=== PATIENT | male | born 1955 | race Caucasian/White ===

== ENCOUNTER → 2016-04-02 | Outpatient (CLI) | payer MEDICARE, OTHER ==
[~2016-04-02] MED LIST: ACTOS 45MG45 MG/TAB PO; ACTOS45 MG PO; ASPIRIN E.C. 8181 MG PO; BENAZEPRIL; BENAZEPRIL20 MG PO; CADUET 10 MG-101 TAB PO; CADUET 5 MG-101 TAB PO; CENTRUM SILVER1 CTB PO; CIPRO 500MG TA500 MG PO; FERROUS SU325 MG/TAB PO; FLAGYL500 MG PO; FOLIC ACID; GLUCOPHAGE500 MG/TAB PO; JANUVIA 100MG100 MG PO; JANUVIA100 MG PO; JARDIANCE25; LANTUS100 U/ML; LANTUS100 U/ML SQ; LIPITOR 10MG10 MG PO; LOTENSIN20 MG PO; METFORMIN500 MG PO; NORCO 325 MG-7.1 TAB PO; NORVASC 5MG5 MG/TAB PO; NORVASC5 MG PO; PRILOSEC 20MG20 MG PO; PRINIVIL20 MG PO; ROXICODONE 55 MG/TAB PO; TOPROL XL 25MG25 MG PO; VIAGRA100 MG PO; VITAMIN C250250 MG PO; WELLBUTRIN XL300 M1 PO
== END ==
LOC: WCC 11:00
DX: I87.8 Other specified disorders of veins (principal); L97.919 Non-pressure chronic ulcer of unspecified part of right lower leg with unspecified severity; E11.9 Type 2 diabetes mellitus without complications
CPT/HCPCS: 17717; 27510; A6197; A6212; G0463

== ENCOUNTER → 2016-04-03 | Outpatient (CLI) | payer MEDICARE, OTHER | LOC: COL.VAS 09:00 | DX: E11.622 Type 2 diabetes mellitus with other skin ulcer (principal); L97.211 Non-pressure chronic ulcer of right calf limited to breakdown of skin; R60.0 Localized edema ==

== ENCOUNTER → 2016-04-13 | Outpatient (CLI) | payer MEDICARE, OTHER | LOC: WCC 08:29 | DX: I87.8 Other specified disorders of veins (principal) | CPT/HCPCS: 17717; 27510; A6197; A6212; G0463 ==

== ENCOUNTER 2016-05-07 14:00 | Outpatient (RCR) | payer MEDICARE, OTHER ==
[~2016-05-07 14:00] MED LIST changes: -CIPRO 500MG TA500 MG PO; -FLAGYL500 MG PO; -JARDIANCE25; -PRINIVIL20 MG PO; -WELLBUTRIN XL300 M1 PO
== END 2016-05-22 10:25 | disposition home or self-care (01) ==
LOC: WSPT 14:00
DX: M25.812 Other specified joint disorders, left shoulder (principal)
CPT/HCPCS: G8984-GP; G8985-GP; G8986-GP

== ENCOUNTER 2016-06-15 19:10 | Inpatient (IN) | payer MEDICARE, OTHER ==
[~2016-06-15] VITALS: Ht 160 cm; Wt 84.2 kg
[2016-06-15 19:55] LABS: BASO % 0.3 % (0.0-2.0); EOS % 0.2 % (0-4.0); GRAN # 10.8 (1.4-6.5); GRAN % 84.5 % (42.2-75.2); HEMATOCRIT 48.2 % (42.0-52.0); HEMOGLOBIN 16.8 g/dl (13.5-18.0); LYMPH # 0.8 (1.2-3.4); LYMPH % 6.5 % (20.0-51.0); MEAN CELL VOLUME 86 fl (80.0-100.0); MEAN CORPUSCULAR HEMOGLOBIN 30 pg (27.0-31.0); MEAN CORPUSCULAR HGB CONC 35 g/dl (33.0-37.0); MEAN PLATELET VOLUME 9.7 fl (7.4-10.4); MONO % 7.8 % (1.7-9.3); PLATELET COUNT 187 K/mm3 (130-400); RED BLOOD COUNT 5.64 M/mm3 (4.20-5.60); REDCELL DISTRIBUTION WIDTH-CV 13.7 % (11.5-14.5); WHITE BLOOD COUNT 12.7 K/mm3 (4.8-10.8)
[2016-06-15 20:02] LABS: PROTHROMBIN TIME 10.5 SECONDS (9.7-12.8)
[2016-06-15 20:05] LABS: PARTIAL THROMBOPLASTIN TIME 28.2 SECONDS (26.0-37.0)
[2016-06-15 20:10] LABS: ADJUSTED CALCIUM 9.3 mg/dL (8.4-10.2); ALANINE AMINOTRANSFERASE 28 U/L (21-72); ALBUMIN 4.2 gm/dL (3.5-5.0); ALKALINE PHOSPHATASE 75 U/L (50-136); AMYLASE 58 U/L (30-110); ANION GAP 15 mmol/L (7-16); BILIRUBIN,TOTAL 1.1 mg/dL (0.0-1.0); BLOOD UREA NITROGEN 21 mg/dL (9-20); CALCIUM 9.5 mg/dL (8.4-10.2); CARBON DIOXIDE 20 mmol/L (22-30); CHLORIDE 102 mmol/L (98-107); CREATININE, serum 1.15 mg/dL (0.66-1.25); GLUCOSE 164 mg/dL (74-106); LIPASE 74 U/L (23-300); POTASSIUM 4.3 mmol/L (3.4-5.0); SODIUM 137 mmol/L (137-145); TOTAL PROTEIN 7.1 gm/dL (6.4-8.2)
[2016-06-15 20:36] LABS: TROPONIN-I < 0.012 ng/mL (0.000-0.034)
[2016-06-15 21:37] LABS: PH 5 (5-8); SQUAMOUS EPITHELIAL None Seen /hpf; URINE APPEARANCE Clear; URINE BACTERIA None Seen /hpf; URINE BILIRUBIN Negative (NEGATIVE); URINE BLOOD Negative (NEGATIVE); URINE COLOR Yellow; URINE GLUCOSE 3+ (NEGATIVE); URINE KETONE Negative (NEGATIVE); URINE RBC 0-2 /hpf; URINE UROBILINOGEN Negative (NEGATIVE); URINE WBC 0-2 /hpf
[2016-06-16] VITALS (545 sets, daily range): BP systolic 121–131; BP diastolic 55–65; PULSE 67–98; TEMP 97.8–98.3; O2SAT 89–98
[2016-06-16] MEDS ORDERED: WELLBUTRIN XL300 M1 PO (02:06)
[2016-06-16] MEDS ORDERED: JARDIANCE25 (02:07)
[2016-06-16] MEDS ORDERED: PRINIVIL20 MG PO (02:09)
[2016-06-16 06:47] LABS: BASO % 0.2 % (0.0-2.0); EOS # 0.1 (0.0-0.7); EOS % 0.6 % (0-4.0); GRAN # 6.8 (1.4-6.5); GRAN % 75.3 % (42.2-75.2); HEMATOCRIT 42.1 % (42.0-52.0); LYMPH # 1.2 (1.2-3.4); LYMPH % 13.7 % (20.0-51.0); MEAN CELL VOLUME 87 fl (80.0-100.0); MEAN CORPUSCULAR HEMOGLOBIN 30 pg (27.0-31.0); MEAN CORPUSCULAR HGB CONC 34 g/dl (33.0-37.0); MEAN PLATELET VOLUME 9.8 fl (7.4-10.4); MONO # 0.8 (0.1-0.6); MONO % 9.3 % (1.7-9.3); PLATELET COUNT 149 K/mm3 (130-400); RED BLOOD COUNT 4.83 M/mm3 (4.20-5.60); REDCELL DISTRIBUTION WIDTH-CV 13.8 % (11.5-14.5)
[2016-06-16 06:58] LABS: HEMOGLOBIN 14.3 g/dl (13.5-18.0)
[2016-06-16 07:11] LABS: POTASSIUM 3.8 mmol/L (3.4-5.0)
[2016-06-17 00:36] VITALS: BP 133/67; PULSE 77; TEMP 98.3
[2016-06-17 04:50] VITALS: BP 133/62; PULSE 91; TEMP 98.6
[2016-06-17 08:38] VITALS: BP 139/66; PULSE 74; TEMP 98.2
[2016-06-17 12:00] VITALS: BP 152/63; PULSE 86; TEMP 97.8
[2016-06-17 15:24] VITALS: BP 138/56; PULSE 79; TEMP 98.7
[2016-06-17] MEDS ORDERED: CIPRO 500MG TA500 MG PO (17:11)
[2016-06-17] MEDS ORDERED: FLAGYL500 MG PO (17:12)
== END 2016-06-17 19:14 | disposition home or self-care (01) | DRG 392 ==
LOC: COL.ER 19:10 → IMCU 21:54 → MEDICAL 21:54 → IMCU 23:31 → MEDICAL 06-16 14:47
PROVIDERS: Emergency Medicine; Nurse Practitioner Family
DX: K57.32 Diverticulitis of large intestine without perforation or abscess without bleeding (principal); R65.10 Systemic inflammatory response syndrome (SIRS) of non-infectious origin without acute organ dysfunction; I10 Essential (primary) hypertension; E11.9 Type 2 diabetes mellitus without complications; F43.10 Post-traumatic stress disorder, unspecified; Z87.891 Personal history of nicotine dependence
CPT/HCPCS: 99223-AI; 99239; J1170; J1815; J1956; J2543; J2765; J3010; J7030; J7050; Q9967

== ENCOUNTER → 2016-11-26 | Outpatient (CLI) | payer MEDICARE, OTHER ==
[~2016-11-26] MED LIST changes: +CIPRO 500MG TA500 MG PO; +FLAGYL500 MG PO; +JARDIANCE25; +PRINIVIL20 MG PO; +WELLBUTRIN XL300 M1 PO
[2016-11-26 10:46] LABS: HIV 1/2 Antibodies Non-Reactive; HIV-1p24 Antigen Non-Reactive
== END ==
LOC: COL.LAB 09:11
PROVIDERS: Orthopaedic Surgery
DX: Z01.812 Encounter for preprocedural laboratory examination (principal); M17.12 Unilateral primary osteoarthritis, left knee

== ENCOUNTER 2016-11-30 12:06 | Outpatient (RCR) | payer MEDICARE, OTHER ==
[2016-12-02] MEDS ORDERED: TOPROL XL 25MG25 MG PO (10:12)
[2016-12-04] MEDS ORDERED: XARELTO10 MG PO (14:06)
[2016-12-04] MEDS ORDERED: NORCO 325 MG-7.1 TAB PO (14:06)
[2016-12-04] MEDS ORDERED: ROXICODONE 55 MG/TAB PO (14:07)
== END 2016-12-03 12:49 ==
LOC: WSPT 12:06
DX: Z01.818 Encounter for other preprocedural examination (principal)
CPT/HCPCS: G8978-GP; G8979-GP; G8980-GP

== ENCOUNTER 2017-03-02 15:45 | Outpatient (RCR) | payer MEDICARE, OTHER ==
[~2017-03-02 15:45] MED LIST changes: +XARELTO10 MG PO
== END 2017-03-05 08:36 | disposition home or self-care (01) ==
LOC: WSPT 15:45
DX: Z47.1 Aftercare following joint replacement surgery (principal); Z96.652 Presence of left artificial knee joint
CPT/HCPCS: G8978-GP; G8979-GP; G8980-GP

== ENCOUNTER 2018-03-24 09:43 | Emergency (ER) | payer MEDICARE, OTHER ==
[~2018-03-24] VITALS: Ht 160 cm; Wt 81.8 kg
[2018-03-24 09:45] VITALS: TEMP 98.4
[2018-03-24 10:06] LABS: BASO % 0.3 % (0.0-2.0); EOS # 0.1 (0.0-0.7); EOS % 0.6 % (0-4.0); GRAN # 12.6 (1.4-6.5); GRAN % 82.2 % (42.2-75.2); HEMATOCRIT 51.9 % (42.0-52.0); HEMOGLOBIN 17.9 g/dl (13.5-18.0); LYMPH # 1.4 (1.2-3.4); LYMPH % 9.1 % (20.0-51.0); MEAN CELL VOLUME 86 fl (80.0-100.0); MEAN CORPUSCULAR HEMOGLOBIN 30 pg (27.0-31.0); MEAN CORPUSCULAR HGB CONC 35 g/dl (33.0-37.0); MEAN PLATELET VOLUME 9.5 fl (7.4-10.4); MONO # 1.1 (0.1-0.6); PLATELET COUNT 211 K/mm3 (130-400); RED BLOOD COUNT 6.04 M/mm3 (4.20-5.60); REDCELL DISTRIBUTION WIDTH-CV 13.4 % (11.5-14.5)
[2018-03-24 10:28] LABS: ALANINE AMINOTRANSFERASE 24 U/L (21-72); ALBUMIN 4.3 gm/dL (3.5-5.0); ALKALINE PHOSPHATASE 85 U/L (50-136); ANION GAP 11 mmol/L (7-16); AST,SGOT 30 U/L (15-37); BILIRUBIN,TOTAL 0.6 mg/dL (0.0-1.0); BLOOD UREA NITROGEN 19 mg/dL (9-20); CALCIUM 9.7 mg/dL (8.4-10.2); CARBON DIOXIDE 22 mmol/L (22-30); CHLORIDE 105 mmol/L (98-107); CREATININE, serum 1.05 mg/dL (0.66-1.25); GLUCOSE 183 mg/dL (74-106); LIPASE 79 U/L (23-300); POTASSIUM 4.6 mmol/L (3.4-5.0); SODIUM 137 mmol/L (137-145); TOTAL PROTEIN 7.5 gm/dL (6.4-8.2)
[2018-03-24 10:30] LABS: C-REACTIVE PROTEIN < 0.5 mg/dL (0.0-0.9)
[2018-03-24 10:37] LABS: TROPONIN-I < 0.012 ng/mL (0.000-0.035)
[2018-03-24 12:52] LABS: COLLECTION METHOD CLEAN CATCH
[2018-03-24 13:03] LABS: PH 5 (5-8); SQUAMOUS EPITHELIAL None Seen /hpf; URINE APPEARANCE Clear; URINE BACTERIA None Seen /hpf; URINE BILIRUBIN Negative (NEGATIVE); URINE BLOOD Negative (NEGATIVE); URINE COLOR Straw; URINE GLUCOSE 3+ (NEGATIVE); URINE KETONE Negative (NEGATIVE); URINE LEUKOCYTE ESTERASE Negative (NEGATIVE); URINE NITRATE Negative (NEGATIVE); URINE PROTEIN(semi-quant) Negative (NEGATIVE); URINE RBC 0-2 /hpf; URINE UROBILINOGEN Negative (NEGATIVE)
[2018-03-24] MEDS ORDERED: ZOFRAN ODT4 MG PO (13:48)
[2018-03-24] MEDS ORDERED: PROTONIX 40MG T40 MG PO (13:48)
[2018-03-24] MEDS ORDERED: CEFTIN500 MG PO (13:48)
[2018-03-24] MEDS ORDERED: NORCO 325 MG-51 TAB PO (13:55)
[2018-03-24 14:21] VITALS: BP 119/65; PULSE 63
== END 2018-03-24 14:23 | disposition home or self-care (01) ==
LOC: COL.ER 09:43
PROVIDERS: Emergency Medicine
DX: R10.9 Unspecified abdominal pain (principal); E11.9 Type 2 diabetes mellitus without complications; I10 Essential (primary) hypertension; E78.5 Hyperlipidemia, unspecified; F43.10 Post-traumatic stress disorder, unspecified; Z79.4 Long term (current) use of insulin; Z79.82 Long term (current) use of aspirin
CPT/HCPCS: C9113; J1170; J2405; J7030; Q9967

== ENCOUNTER 2018-04-19 12:02 | Emergency (ER) | payer MEDICARE, OTHER ==
[~2018-04-19] VITALS: Ht 160 cm; Wt 81.4 kg
[~2018-04-19 12:02] MED LIST changes: +CEFTIN500 MG PO; +NORCO 325 MG-51 TAB PO; +PROTONIX 40MG T40 MG PO; +ZOFRAN ODT4 MG PO
[2018-04-19 12:27] VITALS: TEMP 97.9
[2018-04-19 12:54] LABS: COLLECTION METHOD CLEAN CATCH
[2018-04-19 13:03] LABS: PH 5 (5-8); SQUAMOUS EPITHELIAL 0-2 /hpf; URINE APPEARANCE Clear; URINE BACTERIA None Seen /hpf; URINE BILIRUBIN Negative (NEGATIVE); URINE BLOOD Negative (NEGATIVE); URINE COLOR Yellow; URINE GLUCOSE 3+ (NEGATIVE); URINE KETONE Negative (NEGATIVE); URINE LEUKOCYTE ESTERASE Negative (NEGATIVE); URINE NITRATE Negative (NEGATIVE); URINE PROTEIN(semi-quant) Negative (NEGATIVE); URINE RBC 0-2 /hpf; URINE UROBILINOGEN Negative (NEGATIVE)
[2018-04-19 13:08] LABS: BASO # 0.1 (0.0-0.2); BASO % 0.4 % (0.0-2.0); EOS # 0.1 (0.0-0.7); EOS % 0.7 % (0-4.0); GRAN # 12.4 (1.4-6.5); HEMOGLOBIN 17.9 g/dl (13.5-18.0); LYMPH # 0.9 (1.2-3.4); LYMPH % 6.3 % (20.0-51.0); MEAN CELL VOLUME 87 fl (80.0-100.0); MEAN CORPUSCULAR HEMOGLOBIN 30 pg (27.0-31.0); MEAN CORPUSCULAR HGB CONC 34 g/dl (33.0-37.0); MEAN PLATELET VOLUME 9.8 fl (7.4-10.4); MONO # 1.1 (0.1-0.6); MONO % 7.6 % (1.7-9.3); PLATELET COUNT 197 K/mm3 (130-400); RED BLOOD COUNT 6.06 M/mm3 (4.20-5.60); REDCELL DISTRIBUTION WIDTH-CV 13.5 % (11.5-14.5)
[2018-04-19 13:09] LABS: HEMATOCRIT 52.8 % (42.0-52.0)
[2018-04-19 14:05] LABS: ALANINE AMINOTRANSFERASE 26 U/L (21-72); ALKALINE PHOSPHATASE 64 U/L (50-136); ANION GAP 10 mmol/L (7-16); AST,SGOT 23 U/L (15-37); BILIRUBIN,TOTAL 0.7 mg/dL (0.0-1.0); BLOOD UREA NITROGEN 18 mg/dL (9-20); C-REACTIVE PROTEIN < 0.5 mg/dL (0.0-0.9); CALCIUM 9.1 mg/dL (8.4-10.2); CARBON DIOXIDE 23 mmol/L (22-30); CHLORIDE 108 mmol/L (98-107); CREATININE, serum 0.98 mg/dL (0.66-1.25); GLUCOSE 144 mg/dL (74-106); LIPASE 62 U/L (23-300); POTASSIUM 4.1 mmol/L (3.4-5.0); SODIUM 141 mmol/L (137-145); TOTAL PROTEIN 6.8 gm/dL (6.4-8.2)
[2018-04-19] MEDS ORDERED: NORCO 325 MG-51 TAB PO (14:49)
[2018-04-19 15:10] VITALS: BP 110/58; PULSE 88
== END 2018-04-19 15:11 | disposition home or self-care (01) ==
LOC: COL.ER 12:02
PROVIDERS: Family Medicine
DX: M54.9 Dorsalgia, unspecified (principal); Z79.82 Long term (current) use of aspirin; Z79.4 Long term (current) use of insulin
CPT/HCPCS: J1170; J2405; J7030

== ENCOUNTER → 2018-04-26 | Outpatient (CLI) | payer MEDICARE, OTHER | LOC: COL.RAD 11:49 | DX: R10.11 Right upper quadrant pain (principal) | CPT/HCPCS: A9537 ==

== ENCOUNTER 2018-05-20 14:00 | Day surgery (SDC) | payer MEDICARE, OTHER ==
[~2018-05-20] VITALS: Ht 160 cm; Wt 79.5 kg
[2018-05-20] MEDS ORDERED: TYLENOL W/COD1 UDTAB PO (14:23)
[2018-05-20] MEDS ORDERED: JANUVIA 100MG100 MG PO (14:23)
[2018-05-20] MEDS ORDERED: VITAMIN D 1001000 IU PO (14:24)
[2018-05-20] MEDS ORDERED: PRESERVISION1 SGL PO (14:24)
[2018-05-20 14:26] VITALS: BP 119/66; PULSE 69; TEMP 98.3
[2018-05-20 16:15] VITALS: BP 106/61; PULSE 68; TEMP 97.4
--- NOTE | 2018-05-20 16:15 | NUR ---
The patient arrived back to [facility] at this time. The patient appears alert and oriented and ambulated from the cart to the recliner in his room with the stand by assistance of two nurses. Post procedure vital signs were started at this time. The patient requests to try some vanilla pudding and apple juice at this time. Call light is within reach. Will continue to monitor the patient.
[2018-05-20 16:30] VITALS: BP 102/55; PULSE 74
--- NOTE | 2018-05-20 16:30 | NUR ---
The patient appeared to tolerate the pudding and juice well and requests more of each at this time. The patient's vital signs appear stable. Will continue to monitor the patient.
[2018-05-20 16:45] VITALS: BP 110/54; PULSE 69
--- NOTE | 2018-05-20 16:45 | NUR ---
The patient and his have both spoke with Dr. Cisneros regarding the findings of the proceudres and questions have been answered. The nurse instructed the patient's to go pull the car up to the patient entrance while the patient get dressed. Discharge instructions were reviwed with the patient and he verbalized understanding. The patient's IV to his right wrist was removed and a pressure dressing was applied to the site.
--- NOTE | 2018-05-20 17:00 | NUR ---
The patient ambulated out to a private vehicle escorted by TRU Gonzalez using a steady gait at this time. The patient's belongings and discharge paperwork were sent with him. The patient's is present to drive him home.
== END 2018-05-20 17:00 | disposition home or self-care (01) ==
LOC: SDCO 14:00
DX: K57.30 Diverticulosis of large intestine without perforation or abscess without bleeding (principal); K29.30 Chronic superficial gastritis without bleeding; K59.00 Constipation, unspecified; E11.9 Type 2 diabetes mellitus without complications; K44.9 Diaphragmatic hernia without obstruction or gangrene; R19.7 Diarrhea, unspecified; I10 Essential (primary) hypertension; F43.10 Post-traumatic stress disorder, unspecified; E78.00 Pure hypercholesterolemia, unspecified
CPT/HCPCS: J2250; J3010; J7030

== ENCOUNTER 2018-06-25 15:06 | Emergency (ER) | payer MEDICARE, OTHER ==
[~2018-06-25] VITALS: Ht 160 cm; Wt 82.6 kg
[~2018-06-25 15:06] MED LIST changes: -JARDIANCE25; +JARDIANCE25 PO; +PRESERVISION1 SGL PO; +TYLENOL W/COD1 UDTAB PO; +VIAGRA100 M1 PO; -VIAGRA100 MG PO; +VITAMIN D 1001000 IU PO
[2018-06-25 15:09] VITALS: BP 142/67; TEMP 97.1
[2018-06-25] MEDS ORDERED: FORTAMET500 M1 PO (15:29)
[2018-06-25 15:52] VITALS: PULSE 77
== END 2018-06-25 15:52 | disposition home or self-care (01) ==
LOC: COL.ER 15:06
DX: S02.5XXA Fracture of tooth (traumatic), initial encounter for closed fracture (principal); E11.9 Type 2 diabetes mellitus without complications; I25.10 Atherosclerotic heart disease of native coronary artery without angina pectoris; I10 Essential (primary) hypertension; Z79.4 Long term (current) use of insulin; X58.XXXA Exposure to other specified factors, initial encounter

== ENCOUNTER 2018-11-25 17:29 | Emergency (ER) | payer MEDICARE, OTHER ==
[~2018-11-25] VITALS: Ht 160 cm; Wt 80.9 kg
[~2018-11-25 17:29] MED LIST changes: +FORTAMET500 M1 PO
[2018-11-25 17:48] VITALS: BP 128/61; TEMP 97.4
[2018-11-25 18:53] VITALS: PULSE 73
== END 2018-11-25 18:53 | disposition home or self-care (01) ==
LOC: COL.ER 17:29
DX: S61.212A Laceration without foreign body of right middle finger without damage to nail, initial encounter (principal); I10 Essential (primary) hypertension; E11.9 Type 2 diabetes mellitus without complications; Z79.82 Long term (current) use of aspirin; Z79.4 Long term (current) use of insulin; F17.210 Nicotine dependence, cigarettes, uncomplicated; W29.8XXA Contact with other powered hand tools and household machinery, initial encounter; Y92.009 Unspecified place in unspecified non-institutional (private) residence as the place of occurrence of the external cause

== ENCOUNTER 2019-04-06 09:53 | Emergency (ER) | payer OTHER, MEDICARE ==
[~2019-04-06] VITALS: Ht 160 cm; Wt 80.9 kg
[2019-04-06] MEDS ORDERED: FLEXERIL 1010 MG/TAB PO (10:52)
[2019-04-06] MEDS ORDERED: LIDODERM 5% PATC1 EA TP (10:53)
[2019-04-06 11:15] VITALS: BP 138/80; PULSE 60; TEMP 98.5
== END 2019-04-06 11:11 | disposition home or self-care (01) ==
LOC: COL.ER 09:53
DX: S39.012A Strain of muscle, fascia and tendon of lower back, initial encounter (principal); S80.02XA Contusion of left knee, initial encounter; I10 Essential (primary) hypertension; E11.9 Type 2 diabetes mellitus without complications; Z79.4 Long term (current) use of insulin; Z79.82 Long term (current) use of aspirin; V40.5XXA Car driver injured in collision with pedestrian or animal in traffic accident, initial encounter
CPT/HCPCS: J1885

== ENCOUNTER 2020-03-10 15:11 | Emergency (ER) | payer MEDICARE, OTHER ==
[~2020-03-10] VITALS: Ht 160 cm; Wt 80.9 kg
[~2020-03-10 15:11] MED LIST changes: +FLEXERIL 1010 MG/TAB PO; +LIDODERM 5% PATC1 EA TP
[2020-03-10 15:30] VITALS: TEMP 97.5
[2020-03-10 15:47] LABS: HEMATOCRIT 45.3 % (42.0-52.0); HEMOGLOBIN 15.2 g/dl (13.5-18.0); MEAN CELL VOLUME 88 fl (80.0-100.0); MEAN CORPUSCULAR HEMOGLOBIN 29 pg (27.0-31.0); MEAN CORPUSCULAR HGB CONC 34 g/dl (33.0-37.0); MEAN PLATELET VOLUME 9.9 fl (7.4-10.4); PLATELET COUNT 178 K/mm3 (130-400); RED BLOOD COUNT 5.17 M/mm3 (4.20-5.60); REDCELL DISTRIBUTION WIDTH-CV 13.4 % (11.5-14.5)
[2020-03-10 15:49] LABS: COLLECTION METHOD CLEAN CATCH
[2020-03-10 15:55] LABS: MUCOUS Present /lpf; PH 5 (5-8); SQUAMOUS EPITHELIAL 0-2 /hpf; URINE APPEARANCE Clear; URINE BACTERIA None Seen /hpf; URINE BILIRUBIN Negative (NEGATIVE); URINE BLOOD Negative (NEGATIVE); URINE COLOR Yellow; URINE GLUCOSE 3+ (NEGATIVE); URINE KETONE Trace (NEGATIVE); URINE LEUKOCYTE ESTERASE Negative (NEGATIVE); URINE NITRATE Negative (NEGATIVE); URINE PROTEIN(semi-quant) Negative (NEGATIVE); URINE RBC 0-2 /hpf; URINE UROBILINOGEN Negative (NEGATIVE)
[2020-03-10 16:01] LABS: ALANINE AMINOTRANSFERASE 26 U/L (4-49); ALBUMIN 3.9 gm/dL (3.5-5.0); ALKALINE PHOSPHATASE 71 U/L (50-136); ANION GAP 11 mmol/L (7-16); AST,SGOT 38 U/L (15-37); BILIRUBIN,TOTAL 1.1 mg/dL (0.0-1.0); BLOOD UREA NITROGEN 23 mg/dL (9-20); CALCIUM 8.7 mg/dL (8.4-10.2); CARBON DIOXIDE 23 mmol/L (22-30); CHLORIDE 100 mmol/L (98-107); GLUCOSE 167 mg/dL (74-106); POTASSIUM 4.1 mmol/L (3.4-5.0); SODIUM 134 mmol/L (137-145); TOTAL PROTEIN 7.2 gm/dL (6.4-8.2)
[2020-03-10 16:12] LABS: C-REACTIVE PROTEIN 21.3 mg/dL (0.0-0.9); TROPONIN-I < 0.012 ng/mL (0.000-0.035)
[2020-03-10 16:20] LABS: BAND 1 % (0-10); LYMPHOCYTE 14 % (20.0-51.0); NEUTROPHILS 75 % (42.0-75.2)
[2020-03-10 16:21] LABS: PLATELET ESTIMATE NORMAL (NORMAL)
[2020-03-10] MEDS ORDERED: ZITHROMAX 250M250 MG PO (17:40)
[2020-03-10] MEDS ORDERED: PREDNISONE20 MG PO (17:42)
[2020-03-10 17:45] VITALS: BP 113/63; PULSE 73
== END 2020-03-10 17:54 | disposition home or self-care (01) ==
LOC: COL.ER 15:11
PROVIDERS: Nurse Practitioner Primary Care
DX: Z20.822 Contact with and (suspected) exposure to COVID-19 (principal); I10 Essential (primary) hypertension; E11.9 Type 2 diabetes mellitus without complications; E78.5 Hyperlipidemia, unspecified; Z98.61 Coronary angioplasty status; Z79.4 Long term (current) use of insulin; Z79.82 Long term (current) use of aspirin
CPT/HCPCS: J7512; Q9967

== ENCOUNTER 2020-03-13 20:36 | Inpatient (IN) | payer MEDICARE, OTHER ==
[~2020-03-13] VITALS: Ht 160 cm; Wt 77.7 kg
[~2020-03-13 20:36] MED LIST changes: +PREDNISONE20 MG PO; +ZITHROMAX 250M250 MG PO
[2020-03-13 22:52] LABS: HEMATOCRIT 45.9 % (42.0-52.0); HEMOGLOBIN 15.4 g/dl (13.5-18.0); MEAN CELL VOLUME 88 fl (80.0-100.0); MEAN CORPUSCULAR HEMOGLOBIN 30 pg (27.0-31.0); MEAN CORPUSCULAR HGB CONC 34 g/dl (33.0-37.0); PLATELET COUNT 278 K/mm3 (130-400); RED BLOOD COUNT 5.22 M/mm3 (4.20-5.60); REDCELL DISTRIBUTION WIDTH-CV 13.2 % (11.5-14.5)
[2020-03-13 23:03] LABS: ALANINE AMINOTRANSFERASE 24 U/L (4-49); ALBUMIN 3.8 gm/dL (3.5-5.0); ALKALINE PHOSPHATASE 58 U/L (50-136); ANION GAP 11 mmol/L (7-16); AST,SGOT 37 U/L (15-37); BLOOD UREA NITROGEN 23 mg/dL (9-20); CALCIUM 8.6 mg/dL (8.4-10.2); CARBON DIOXIDE 22 mmol/L (22-30); CHLORIDE 99 mmol/L (98-107); CREATININE, serum 1.06 (0.66-1.25); GLUCOSE 141 mg/dL (74-106); POTASSIUM 4.7 mmol/L (3.4-5.0); SODIUM 132 mmol/L (137-145); TOTAL PROTEIN 7.3 gm/dL (6.4-8.2)
[2020-03-13 23:04] LABS: LYMPHOCYTE 10 % (20.0-51.0); MYELOCYTE 1 % (0-0); NEUTROPHILS 85 % (42.0-75.2)
[2020-03-13 23:05] LABS: PLATELET ESTIMATE NORMAL (NORMAL); SCHISTOCYTES 1+
[2020-03-13 23:11] LABS: TROPONIN-I < 0.012 ng/mL (0.000-0.035)
[2020-03-13] MEDS ORDERED: GLUCOPHAGE500 MG/TAB PO (23:59)
[2020-03-14] VITALS (7 sets, daily range): BP systolic 106–133; BP diastolic 54–64; PULSE 55–72; TEMP 97.7–99.8
[2020-03-14] MEDS ORDERED: VITAMIN D31000 I1 PO (00:04)
[2020-03-14 01:19] LABS: INR 1.1 (0.8-3.0)
[2020-03-14 01:22] LABS: PARTIAL THROMBOPLASTIN TIME 29.4 SECONDS (26.0-37.0)
--- NOTE | 2020-03-14 02:00 | NUR ---
Received patient from ED. He is COVID PUI. He is alert and oriented. ER nurse just hooked patient to NS at 75ml/hr and Doxycycline 100mg IV. He is on O2 at 2lpm via NC. He states he is short of breath depending on his position and whenever he would ambulate. He denies pain. He said he is hungry and wanting some food and drinks. Instructed patient that I will swab him for covid test and we need a urine sample. Informed him regarding frequency of his blood glucose monitoring. He is independent. His lungs are diminished. Call light within reach.
[2020-03-14 03:19] LABS: ARTERIAL BLD GAS O2 SATURATION 97.2 % (92-100); ARTERIAL BLD GAS TCO2 CT 20.1; ARTERIAL BLOOD GAS BASE EXCESS -1.9 (-2-2); ARTERIAL BLOOD GAS HCO3 19.3 meq/L (22-26); ARTERIAL BLOOD GAS PCO2 25.6 mmHg (35-45); ARTERIAL BLOOD GAS PO2 85.2 mmHg (80-100)
[2020-03-14 07:57] LABS: HEMATOCRIT 43.3 % (42.0-52.0); HEMOGLOBIN 14.4 g/dl (13.5-18.0); MEAN CELL VOLUME 87 fl (80.0-100.0); MEAN CORPUSCULAR HEMOGLOBIN 29 pg (27.0-31.0); MEAN CORPUSCULAR HGB CONC 33 g/dl (33.0-37.0); MEAN PLATELET VOLUME 9.8 fl (7.4-10.4); PLATELET COUNT 271 K/mm3 (130-400); RED BLOOD COUNT 4.96 M/mm3 (4.20-5.60); REDCELL DISTRIBUTION WIDTH-CV 13.2 % (11.5-14.5)
[2020-03-14 07:58] LABS: CALCIUM 8.3 mg/dL (8.4-10.2); CREATININE, serum 1.03 (0.66-1.25); POTASSIUM 4.5 mmol/L (3.4-5.0)
[2020-03-14 08:29] LABS: BAND 4 % (0-10); LYMPHOCYTE 13 % (20.0-51.0); NEUTROPHILS 73 % (42.0-75.2); PLATELET ESTIMATE NORMAL (NORMAL)
--- NOTE | 2020-03-14 10:51 | NUR ---
PT IS LAYING IN BED, DENIES ANY PAIN OR DISCOMFORT AT THIS TIME. PT DID RECIEVE TYLENOL PER MAR FOR HEADACHE. NO OTHER CONCERNS AT THIS TIME.
--- NOTE | 2020-03-14 14:47 | NUR ---
Drug Safety Scientist contacted patient by room phone to discuss discharge planning as patient is a PUI for COVID. Patient lives in [place] with his , Evon (ph#[phone]) and sees Dr. Roldan for primary care. Patient obtains medications from either [facility] or [facility] with no difficulties. Patient does not use any DME and is independent with ADLS. Patient does not have Advance Directives. Patient plans to return home upon discharge. SW contacted patient's , Evon to review discharge plan. Evon is in agreement with patient returning home upon discharge. Evon inquired about having a pulmonary consult and states that patient asked Hospitalist about this. SW will continue to follow.
--- NOTE | 2020-03-14 20:28 | NUR ---
Assesment done. Patient still with shortness of breath when ambulating. About to flush his INT with saline when noticed that the surrounding of his INT is bruised/ecchymosis. When tried flushing a bit of NS,patient complains of pain. Informed him that we have to insert another IV since he is getting a lot of IV antibiotics. Patient states he is a hard stick. Will try to find one or will call charge nurse or cured meat packing supervisor for IV insertion. Will place warm blanket to help find veins.
--- NOTE | 2020-03-14 21:15 | NUR ---
Tried finding veins but cannot get one. [facility] to insert an IV. She was able to insert on right hand G22. Removed old INT on his left forearm.
--- NOTE | 2020-03-14 22:15 | NUR ---
Patient's covid PCR came back positive, informed Abigail CALDERÓN via phone call, [facility] and informed the patient.
[2020-03-15 04:58] VITALS: BP 126/66; PULSE 56; TEMP 98.1
--- NOTE | 2020-03-15 05:33 | NUR ---
Patient's blood glucose this morning is 57mg/dl. Gave him 2 cranberry juice and rechecked after 20 minutes and his blood glucose went up to 101mg/dl. Abigail CALDERÓN updated via phone call.
[2020-03-15 07:09] LABS: HEMATOCRIT 44.4 % (42.0-52.0); HEMOGLOBIN 15.3 g/dl (13.5-18.0); MEAN CELL VOLUME 87 fl (80.0-100.0); MEAN CORPUSCULAR HEMOGLOBIN 30 pg (27.0-31.0); MEAN CORPUSCULAR HGB CONC 35 g/dl (33.0-37.0); MEAN PLATELET VOLUME 9.9 fl (7.4-10.4); PLATELET COUNT 295 K/mm3 (130-400); RED BLOOD COUNT 5.12 M/mm3 (4.20-5.60)
[2020-03-15 07:35] LABS: CALCIUM 8.8 mg/dL (8.4-10.2); CREATININE, serum 1.03 (0.66-1.25); POTASSIUM 3.7 mmol/L (3.4-5.0)
--- NOTE | 2020-03-15 07:48 | NUR ---
PT LAYING IN BED AT THIS TIME. PT IS NOT ON O2 AT THIS TIME. PT IS HAVING A DRY COUGH, BUT NOT LABORED BREATHING, HE DOES GET HYPOXIC WHEN AMBULATING, MAY CONSIDER AN EXERCISE OXIMETERY. NO OTHER CONCERNS AT THIS TIME.
[2020-03-15 08:22] VITALS: BP 133/68; PULSE 52; TEMP 97.7
[2020-03-15 08:35] LABS: LYMPHOCYTE 10 % (20.0-51.0); METAMYELOCYTE 1 % (0-0); MYELOCYTE 1 % (0-0); NEUTROPHILS 78 % (42.0-75.2)
[2020-03-15 08:36] LABS: PLATELET ESTIMATE NORMAL (NORMAL); TARGET CELLS 1+
--- NOTE | 2020-03-15 10:13 | NUR ---
PT IS LAYING IN BED AT THIS TIME. DENIES ANY NEEDS. HE HAS BEEN WEENED OFF O2, AND IS SATURATING 95% ON RA WHILE AT REST. MAY NEED AN EXERCISE OXIMETRY TO VERIFY O2 NEEDS DURING AMBULATION. NO FURTHER CONCERNS AT THIS TIME.
[2020-03-15 12:06] VITALS: BP 120/59; PULSE 63; TEMP 98.1
[2020-03-15 16:00] VITALS: BP 134/65; PULSE 65; TEMP 98
--- NOTE | 2020-03-15 18:32 | NUR ---
PT HAS HAD AN UNEVENTFUL DAY. DENIES ANY DISCOMFORT.NO CONCERNS AT ALL.
--- NOTE | 2020-03-15 20:00 | NUR ---
At time of assessment, patient is awake in bed watching tv. He is alert and oriented with no complaints of pain. He is on RA and shows no signs of increased work of breathing. He states he only coughs when he takes a deep breath; lung sounds are clear and diminished in bases. No edema is present. Right hand INT flushes well. Call light in reach.
[2020-03-15 20:34] VITALS: BP 152/64; PULSE 67; TEMP 97.9
[2020-03-16 00:17] VITALS: BP 150/63; PULSE 58; TEMP 97.8
[2020-03-16 05:18] VITALS: BP 130/66; PULSE 52; TEMP 98.1
[2020-03-16 08:26] VITALS: BP 139/67; PULSE 56; TEMP 98.7
--- NOTE | 2020-03-16 10:15 | NUR ---
Assessment complete. Patient ambulating in room on entry, doing well. no complaints of pain or discomfort. States his pain is his main issue at the moment. Meds given per MAR with no issues. IV site is CD&I, flushed well. No other needs were expressed at this time. Call light is in reach. Will continue to monitor.
[2020-03-16 11:10] VITALS: BP 145/63; PULSE 66; TEMP 97.7
[2020-03-16] MEDS ORDERED: DOXYCYCLINE 10100 MG PO (13:11)
[2020-03-16] MEDS ORDERED: DECADRON6 MG PO (13:12)
[2020-03-16] MEDS ORDERED: ROBITUSSIN A-C S1 M1 PO (13:13)
[2020-03-16] MEDS ORDERED: ROBITUSSIN DM 105 ML PO (13:15)
--- NOTE | 2020-03-16 17:07 | NUR ---
Patient left the floor at this time. Discharge instructions were discussed. I also spoke with his at length regarding precautions at home. Patient refused 1600 insulin as he was not going to be eating dinner any time soon and ensured that he would check it through the evening. No other questions or concerns.
== END 2020-03-16 17:08 | disposition home or self-care (01) | DRG 177 ==
LOC: COL.ER 20:36 → MEDICAL 23:13
PROVIDERS: Hospitalist; Nurse Practitioner; Nurse Practitioner Family; ADMIT Student in an Organized Health Care Education/Training Program
DX: U07.1 COVID-19 (principal); J96.01 Acute respiratory failure with hypoxia; E87.2 Acidosis; F43.10 Post-traumatic stress disorder, unspecified; E78.5 Hyperlipidemia, unspecified; I10 Essential (primary) hypertension; E11.649 Type 2 diabetes mellitus with hypoglycemia without coma; K21.9 Gastro-esophageal reflux disease without esophagitis; M19.90 Unspecified osteoarthritis, unspecified site; Z86.718 Personal history of other venous thrombosis and embolism; Z87.442 Personal history of urinary calculi
CPT/HCPCS: 99223-AI; 99232-AI; 99239; J0692; J1100; J1650; J1815; J7030

== ENCOUNTER 2020-04-03 05:42 | Emergency (ER) | payer MEDICARE, OTHER ==
[~2020-04-03] VITALS: Ht 160 cm; Wt 78.2 kg
[~2020-04-03 05:42] MED LIST changes: +DECADRON6 MG PO; +DOXYCYCLINE 10100 MG PO; +ROBITUSSIN A-C S1 M1 PO; +ROBITUSSIN DM 105 ML PO; +VITAMIN D31000 I1 PO
[2020-04-03 05:45] VITALS: TEMP 98.3
[2020-04-03 10:12] VITALS: BP 123/66; PULSE 82
[2020-04-04 11:48] LABS: TROPONIN-I < 0.012 ng/mL (0.000-0.035)
[2020-04-04 11:49] LABS: ALANINE AMINOTRANSFERASE 29 U/L (4-49); ALBUMIN 3.7 gm/dL (3.5-5.0); ALKALINE PHOSPHATASE 68 U/L (50-136); ANION GAP 6 mmol/L (7-16); AST,SGOT 33 U/L (15-37); BLOOD UREA NITROGEN 18 mg/dL (9-20); C-REACTIVE PROTEIN 0.9 mg/dL (0.0-0.9); CALCIUM 8.9 mg/dL (8.4-10.2); CARBON DIOXIDE 26 mmol/L (22-30); CHLORIDE 102 mmol/L (98-107); GLUCOSE 167 mg/dL (74-106); POTASSIUM 4.3 mmol/L (3.4-5.0); SODIUM 133 mmol/L (137-145); TOTAL PROTEIN 6.5 gm/dL (6.4-8.2)
[2020-04-04 15:39] LABS: BASO % 0.3 % (0.0-2.0); EOS # 0.1 (0.0-0.7); EOS % 0.8 % (0-4.0); GRAN # 8.3 (1.4-6.5); GRAN % 85.5 % (42.2-75.2); HEMATOCRIT 42.1 % (42.0-52.0); HEMOGLOBIN 14.4 g/dl (13.5-18.0); LYMPH # 0.7 (1.2-3.4); LYMPH % 7.1 % (20.0-51.0); MEAN CELL VOLUME 88 fl (80.0-100.0); MEAN CORPUSCULAR HEMOGLOBIN 30 pg (27.0-31.0); MEAN CORPUSCULAR HGB CONC 34 g/dl (33.0-37.0); MEAN PLATELET VOLUME 10.2 fl (7.4-10.4); MONO # 0.6 (0.1-0.6); MONO % 5.7 % (1.7-9.3); PLATELET COUNT 136 K/mm3 (130-400); RED BLOOD COUNT 4.76 M/mm3 (4.20-5.60); REDCELL DISTRIBUTION WIDTH-CV 14.6 % (11.5-14.5)
== END 2020-04-03 10:12 | disposition home or self-care (01) ==
LOC: COL.ER 05:42
PROVIDERS: Emergency Medicine
DX: R60.0 Localized edema (principal); R79.1 Abnormal coagulation profile; I10 Essential (primary) hypertension; E11.9 Type 2 diabetes mellitus without complications; E78.5 Hyperlipidemia, unspecified; Z86.16 Personal history of COVID-19; Z96.653 Presence of artificial knee joint, bilateral; Z86.718 Personal history of other venous thrombosis and embolism; Z79.82 Long term (current) use of aspirin; Z79.4 Long term (current) use of insulin